=== PATIENT | female | born 1950 | race Caucasian/White ===

== ENCOUNTER 2019-03-04 19:04 | Emergency (ER) | payer BC, OTHER ==
[~2019-03-04] VITALS: Ht 167.6 cm; Wt 68.0 kg
[~2019-03-04 19:04] MED LIST: EPIN0.157 IM
[2019-03-04 20:19] VITALS: BP_SYST 152
--- NOTE | 2019-03-04 20:25 | NUR ---
Pt placed to ER waiting room in stable condition.
--- NOTE | 2019-03-04 21:25 | NUR ---
Patient to ER bed 03 to gown for evaluation. Side rails up.
--- NOTE | 2019-03-04 21:25 | NUR ---
ER MD Ayala at bedside for medical evaluation.
--- NOTE | 2019-03-04 21:26 | NUR ---
Patient AOx4, ambulatory, presents to ER for complaint of dog bite to right forearm that occurred at 1830 today. Per patient, alycia costello walking on a sidewalk when suddenly a light brown [place] went towards patient "charging". Patient states she went to another neighbor's house to clean wound and get away from dog. Patient states incident was not reported and wanted to seek medical attention first. Pateint noted with puncture wounds to right forearm. Bleeding controlled. at bedside.
[2019-03-04] MEDS: DIPH-TET-PERTUS Vaccine 0.5 ML VIAL (ADACEL) IM ONE (21:55)
[2019-03-04] MEDS: BACITRACIN 1 GM OINT TP ONE (21:55)
--- NOTE | 2019-03-04 22:23 | NUR ---
Patient reports animal bite. Required information collected on Animal Bite form and faxed to or . Faxed to [facility] [place] [facility].
[2019-03-04 22:24] VITALS: BP_SYST 142
--- NOTE | 2019-03-04 22:24 | NUR ---
Patient given written and verbal discharge instructions and verbalizes understanding. ER MD discussed with patient the results and treatment provided. Patient in stable condition. ID arm band removed. Rx of Tylenol and Augmentin given. Patient educated on pain management and to follow up with PMD. Pain Scale 2/10 tolerable to patient. Opportunity for questions provided and answered. Medication side effect fact sheet provided.
== END 2019-03-04 22:24 | disposition home or self-care (01) ==
LOC: SED 19:04
DX: S51.831A Puncture wound without foreign body of right forearm, initial encounter (principal); R03.0 Elevated blood-pressure reading, without diagnosis of hypertension; W54.0XXA Bitten by dog, initial encounter; Y93.89 Activity, other specified; Y92.89 Other specified places as the place of occurrence of the external cause; Y99.8 Other external cause status
CPT/HCPCS: 73090; 90715; 99283